=== PATIENT | male | born 1950 | race Caucasian/White ===

== ENCOUNTER → 2017-08-13 | Outpatient (CLI) | payer OTHER ==
[~2017-08-13] MED LIST: ATOR40TA24 PO; ATOR40TA69 PO; CIP500 PO; D ME PO; DESV50TA9 PO; DIA5 PO; DOC100 PO; DUL20 PO; DULO60CA56 PO; ESOM40CA42 PO; FIN5 PO; GAV PO; HYDR-385 PO; IBU200 PO; LOR5 PO; LOR5/325 PO; NAPR-1043 PO; NAPR220C11 PO; NIT100 PO; OMEP-218 PO; OMEP20CA68 PO; OXYC-856 PO; PER PO; PHENA200 PO; PREG150C34 PO; PREG75CA61 PO; SILD100T59 PO; SULFAMETHOXAZOLE PO; TRAZ-156 PO; TRIMETHOPRIM PO; [UNRECOGNIZED DRUG - OTHER] PO
[2017-08-13 14:49] LABS: PLATELET COUNT, AUTOMATED 165 K/uL (150-450)
[2017-08-13 15:10] LABS: LDL CHOLESTEROL 128 mg/dl
== END ==
LOC: LAB 14:25
PROVIDERS: ATTEND Emergency Medicine
DX: Z12.5 Encounter for screening for malignant neoplasm of prostate (principal); E78.5 Hyperlipidemia, unspecified
CPT/HCPCS: 36415; 82040; 82247; 82310; 82374; 82435; 82465; 82565; 82947; 83718; 84075; 84132; 84153; 84155; 84295; 84450; 84460; 84478; 84520; 85025

== ENCOUNTER → 2017-09-02 | Outpatient (CLI) | payer OTHER ==
--- NOTE | 2017-09-05 06:33 | RADIOLOGY IMAGING REPORT ---
FACILITY: [facility] - [place] PATIENT NAME: KARAN BE : [id number] MR: [id number] V: [id number] EXAM DATE: ORDERING PHYSICIAN: GUSTAVO ADAM TECHNOLOGIST: [place] EXAMINATION:TWO-DIMENSIONAL ECHOCARDIOGRAPH REASON:HEART MURMUR 2D Measurements (normal values in centimeters) LV endLV endRV endVent.LV PostAorticLeftPercent DiastolicSystolicDiastolicSeptumWallRootAtriumShortening (3.5-5.7)(0.9-2.6)(0.6-1.1)(0.6-1.1)(2.0-3.7)(1.9-4.0)(25-35%) [id number]% STROKE VOLUME: 43ml ESTIMATED EJECTION FRACTION: 72% PARASTERNAL LONG AXIS: Overall left ventricular systolic function appears to be normal chamber sizes also appear to be normal. There is mild concentric left ventricular thickening present. The aortic valve and mitral valve both appear to open normally. Color examination revealed some mitral and tricuspid insufficiency present. PARASTERNAL SHORT AXIS: Overall left ventricular systolic function appears to be normal. Mild concentric left ventricular thickening. No evidence for any outflow tract obstruction. Aortic valve is trileaflet in configuration and appears to open normally. Pulmonic insufficiency is noted as well as some tricuspid insufficiency. APICAL FOUR AND TWO CHAMBER: Normal left ventricular ejection fraction and normal chamber sizes. Aortic valve area and mitral valve area both measure within normal ranges of 2.0 and 2.5cm2 respectively. The tricuspid regurgitation Vmax was measured at 2.21m/sec. Left atrial volume and right atrial volume measure within normal ranges 19 & 16 ml/m2. The TAPSE for the right ventricular function is measured within normal range of 2.48. Trace of mitral, tricuspid and pulmonic insufficiency is noted. SUBCOSTAL VIEW: No pericardial effusion was noted. No atrioseptal or ventriculoseptal defects were noted. The IVC is normal in size. The Doppler examination of the mitral valve in diastole does reveal the A wave > E wave. OVERALL IMPRESSION: 1. Normal left ventricular ejection fraction of 72% with a mild Grade 1 decrease in diastolic function. 2. Mild concentric left ventricular thickening but no evidence for any outflow tract obstruction. 3. A trileaflet aortic valve with no abnormalities. 4. A trace of mitral, tricuspid and pulmonic insufficiency with estimated right ventricular systolic pressures within normal ranges at 23mm HG. No other abnormalities were noted. Dictated by: Brooke Lorenzo M.D. on 09/03/2017 at 20:42 Transcribed by: KARLA on 09/04/2017 at 10:12 Approved by: Brooke Lorenzo M.D. on 09/05/2017 at 6:32 [facility]
== END ==
LOC: US 01:07
PROVIDERS: ATTEND Emergency Medicine
DX: I50.30 Unspecified diastolic (congestive) heart failure (principal); I07.1 Rheumatic tricuspid insufficiency; I51.7 Cardiomegaly; I37.1 Nonrheumatic pulmonary valve insufficiency; I34.0 Nonrheumatic mitral (valve) insufficiency
CPT/HCPCS: 93306

== ENCOUNTER → 2017-11-13 | Outpatient (CLI) | payer OTHER ==
[~2017-11-13] MED LIST changes: +LOSA50TA72 PO; -TRAZ-156 PO; +TRAZ50TA34 PO
[2017-11-13 12:27] LABS: LDL CHOLESTEROL 83 mg/dl
== END ==
LOC: LAB 11:58
PROVIDERS: ATTEND Emergency Medicine
DX: I10 Essential (primary) hypertension (principal)
CPT/HCPCS: 36415; 82310; 82374; 82435; 82465; 82565; 82947; 83718; 84132; 84295; 84478; 84520

== ENCOUNTER → 2018-05-22 | Outpatient (CLI) | payer OTHER ==
[~2018-05-22] MED LIST changes: +ATOR-1 PO; -LOSA50TA72 PO; +LOSA50TA80 PO
[2018-05-22 09:28] LABS: PLATELET COUNT, AUTOMATED 141 K/uL (150-450)
[2018-05-22 09:46] LABS: LDL CHOLESTEROL 66 mg/dl
== END ==
LOC: LAB 09:08
PROVIDERS: ATTEND Emergency Medicine
DX: Z12.5 Encounter for screening for malignant neoplasm of prostate (principal); E78.5 Hyperlipidemia, unspecified; I51.9 Heart disease, unspecified
CPT/HCPCS: 36415; 82040; 82247; 82310; 82374; 82435; 82465; 82565; 82947; 83718; 84075; 84132; 84153; 84155; 84295; 84450; 84460; 84478; 84520; 85025

== ENCOUNTER → 2018-08-13 | Outpatient (CLI) | payer OTHER ==
[~2018-08-13] MED LIST changes: -NAPR220C11 PO; +NAPR220C62 PO; +PNEU0.5D3 IM
== END ==
LOC: RESP 01:22
PROVIDERS: ATTEND Emergency Medicine
DX: G47.33 Obstructive sleep apnea (adult) (pediatric) (principal)

== ENCOUNTER → 2018-08-27 | Outpatient (CLI) | payer OTHER ==
--- NOTE | 2018-08-27 10:34 | RADIOLOGY IMAGING REPORT ---
FACILITY: [facility] PATIENT NAME: Germán Constantino : 1950 MR: [id number] V: [id number] EXAM DATE: ORDERING PHYSICIAN: GUSTAVO ADAM TECHNOLOGIST: Location: [facility] - [place] Patient: Germán Constantino : 1950 Visit/Account:[id number] Date of Sevice: 08/27/2018 LIVER HISTORY: elevated liver enzyme COMPARISON: None. FINDINGS: Gallbladder: Unremarkable; no stones or sludge. Liver: There is a mildly heterogeneous echo pattern throughout the liver although discrete masses are not seen. The liver does not appear enlarged.. There is a mildly lobulated contour to the liver Common duct: Normal, four mm diameter. Pancreas: Partially obscured by bowel, visualized aspects unremarkable. Right kidney: There is a 2.1 cm cystic structure medial aspect of the right kidney may represent a mi ldly prominent extrarenal pelvis Upper abdominal aorta and IVC: Patent. Ascites: None visualized. IMPRESSION: Mildly heterogeneous liver with a slightly lobular contour although discrete hepatic mass is not demo nstrated and there was no evidence of hepatomegaly or biliary ductal dilatation. Report Dictated By: Kim Paredes MD at 08/27/2018 10:25 AM Report E-Signed By: Kim Paredes MD at 08/27/2018 10:29 AM WSN:[email or web address]
== END ==
LOC: US 01:07
PROVIDERS: ATTEND Emergency Medicine
DX: R74.8 Abnormal levels of other serum enzymes (principal)
CPT/HCPCS: 76705